=== PATIENT | male | born 1990 | race Caucasian/White ===

== ENCOUNTER 2018-09-19 17:52 | Inpatient (IN) ==
[2018-09-19] MEDS ORDERED: CLINDAMYCIN 600 MG/NS 600 MG/50 ML IVPB IV ONE (18:35)
[2018-09-19] MEDS ORDERED: ZOFRAN IV ONE (18:35)
[2018-09-19] MEDS ORDERED: MORPHINE IV ONE (18:35)
[2018-09-19] MEDS ORDERED: NS 1,000 ML IV ONE ×2 (18:35→21:11)
[2018-09-19] MEDS ORDERED: CLINDAMYCIN 600 MG/D5W 600 MG/50 ML IVPB IV ONE (18:45)
[2018-09-19 19:21] LABS: BASO# 0.07 X1000 (0.0-0.2); BASO% 0.4 % (0.0-0.8); EOS# 0.16 X1000 (0.0-0.7); EOS% 0.9 % (0.0-10.0); HEMATOCRIT 41.7 % (42.0-52.0); HEMOGLOBIN 14.6 g/dL (14.0-18.0); IMM GRAN# 0.16 X1000 (0.0-0.04); IMM GRAN% 0.9 % (0.0-0.5); LYMPH# 1.25 X1000 (1.2-3.4); MCH 29.3 PG (27-31); MCV 83.7 FL (81-99); MONO# 2.23 X1000 (0.11-0.59); MONO% 12.5 % (1.7-9.3); MPV 9.7 FL (7.4-10.4); NEUT# 13.93 X1000 (1.4-6.5); NEUT% 78.3 % (42.2-75.2); PLT 227 X1000 (130-400); RBC 4.98 XMIL (4.7-6.1); RDW 12.6 % (11.5-14.5)
--- NOTE | 2018-09-19 19:30 | Diag Imaging Result Doc PS360 ---
EXAM: HAND COMPLETE RIGHT - 09/19/2018 HISTORY: severe cellulitis TECHNIQUE: Right hand three views COMPARISON: 11/29/2015 FINDINGS: The patient apparently is unable to straighten the second through fifth fingers for optimal positioning. There is substantial soft tissue swelling. There are no bony erosive or destructive changes identified. There is no fracture or dislocation identified. There is no opaque foreign body identified. IMPRESSION: Substantial soft tissue swelling. No discrete bony abnormality. Electronically signed by Gopal Aguayo 09/19/2018 7:28 PM
[2018-09-19 20:29] LABS: AGAP 14; ALBUMIN 3.5 g/dL (3.5-5.0); ALKALINE PHOSPHATASE 106 U/L (32-122); BUN 7 mg/dL (8-22); CALCIUM 8.8 mg/dL (8.8-10.2); CHLORIDE 94 mmol/L (98-107); COSMO 266; CREATININE 0.6 mg/dL (0.7-1.2); ESTIMATED GFR > 60; GLUCOSE 100 mg/dL (70-104); GOT 24 U/L (10-34); GPT 22 U/L (10-44); POTASSIUM 3.2 mmol/L (3.5-5.1); SODIUM 134 mmol/L (136-145); TCO2 26 mmol/L (25-35); TOTAL PROTEIN 7.6 g/dL (6.3-8.3)
[2018-09-19] MEDS ORDERED: DILAUDID IV ONE ×2 (20:38→21:31)
[2018-09-19] MEDS ORDERED: VANCOMYCIN 1 GM/NS 1 GM/250 ML IVPB IV ONE (21:10)
[2018-09-19] MEDS ORDERED: ZOFRAN IV PRN (21:11)
[2018-09-19] MEDS ORDERED: VANCOMYCIN IV PER PHARMACY MISC SCH (21:15)
[2018-09-19] MEDS ORDERED: DILAUDID ONE (21:32)
[2018-09-19] MEDS: NS IV SCH (22:10)
[2018-09-19] MEDS: UNASYN IV SCH (22:10)
--- NOTE | 2018-09-19 23:05 | PROVIDER DOCUMENTATION ---
This chart was entered by Aleida Piña Scribe, acting as scribe for Madalyn Schaffer CRNP. HPI-Rash/Wound/ReCheck - General Chief Complaint: Insect Bite/Sting Stated Complaint: POSS SPIDER BITE RT HAND Time Seen by Provider: 09/19/18 18:18 Source: patient Allergies/Adverse Reactions: Allergies Allergy/AdvReac Type Severity Reaction Status Date / Time No Known Allergies Allergy Verified 09/19/18 19:04 Home Medications: Home Medication List Medication Instructions Recorded Confirmed Last Taken Type NK [No Home Medications] 09/19/18 09/19/18 Unknown History - History of Present Illness-Dermatology Nature of Presenting Problem: Pt sts that he was working under a house 4-5 days ago and felt a sting/bite on his right hand. Reports gradual swelling since then and affected hand and is now erythemic and severely swollen with purulent exudate. He denies fever or any other symptoms. Location: reports: hands (R hand) Quality: reports: painful, stinging Onset/Duration: reports: 1 week ago Timing: reports: still present Context/Associated Symptoms: reports: insect bite/sting, spider bite, abscess. denies: fever Identifiable cause?: No (possible spider/insect ) Exposure: reports: unknown cause Modifying Factors: improves with: topical steriods, other Locality of Occurance: Home Similar Symptoms Previously?: No Recently seen or treated by another doctor?: No Review of Systems - Adult - REVIEW OF SYSTEMS - ADULT Constitutional: reports: no symptoms reported. denies: chills, fever Eyes: reports: no symptoms reported Ears, Nose, Mouth & Throat: reports: no symptoms reported Cardiovascular: reports: no symptoms reported. denies: chest pain Respiratory: reports: no symptoms reported. denies: cough, shortness of breath Gastrointestinal: reports: no symptoms reported. denies: abdominal pain Genitourinary: reports: no symptoms reported Musculoskeletal: reports: see HPI, joint swelling, other (hand pain) Integumentary: reports: other (cellulitic right hand) Neurological: reports: no symptoms reported Psychiatric: reports: no symptoms reported Endocrine: reports: no symptoms reported Hematologic/Lymphatic: reports: no symptoms reported Allergic/Immunologic: reports: no symptoms reported All Other Systems: Reviewed and Negative Past History - Adult - PAST MEDICAL HISTORY-ADULT Review of Records: reports: Old Records Reviewed, Nursing Assessment Review, Medications Reviewed, Social history reviewed & non-contributory. Major Childhood Illnesses: reports: denies history Cardiovascular: reports: denies history Respiratory: reports: denies history Gastrointestinal: reports: denies history Obstetrical/Gynecological: reports: denies history Genitourinary: reports: denies history Musculoskeletal: reports: denies history Neurological: reports: denies history Psychiatric: reports: denies history Endocrine/Immune: reports: denies history Other Conditions: reports: denies history - PRIOR SURGERIES/PROCEDURES Surgical/Procedure History: reports: none - FAMILY HISTORY Family History: reviewed, not pertinent - SOCIAL HISTORY Smoking: cigarettes, less than 1 pack/day Provider spent 3-5 mins advising pt. on dangers of tobacco.: Discussed manners to quit use, and f/u contacts for add'l counseling. Substance Use: none/never Alcohol Use Frequency: never Living Situation: family Physical Exam-General - PHYSICAL EXAM-ADULT Initial Vital Signs Reviewed: Yes - CONSTITUTIONAL General Appearance: appears well, alert, mild distress. negative: lethargic, slow to respond - EYES Eyes: pink conjunctivae - HEAD, EARS, NOSE, MOUTH & THROAT HENMT: normocephalic/atraumatic, moist mucous membranes - NECK Neck: full range of motion, supple, normal inspection - RESPIRATORY Respiratory: chest non-tender, lungs clear, normal breath sounds, no pleuratic chest pain, no respiratory distress, no accessory muscle use - CARDIOVASCULAR Cardiovascular: normal peripheral pulses, regular rate, rhythm, no gallop, no murmur - GASTROINTESTINAL (ABDOMEN) Abdominal Exam: normal bowel sounds, non tender, soft - MUSCULOSKELETAL Back Exam: normal inspection Extremity: erythema, swelling (Severe edema noted to right hand. Pt able to wiggle all fingers but unable to bend fingers due to swelling. Sensation is intact. Area surrounding right thumb very fluctuant. Yellow exudate draining from an opening to the cellulitic area. Cellulitis does not extend into forearm but is noted to entire right hand.), tenderness, other (Pt has severe errythema and edema w/ yellow, oozing exudate to R hand dear thumb). negative: deformity , pulse deficit, slow capillary refill - SKIN Integumentary: normal color, normal turgor, warm/dry, swelling, tenderness - NEUROLOGIC Neurologic: grossly normal - PSYCHIATRIC Psych/Mental Status: normal mood/affect, normal thought content, normal thought process, oriented x 3 Progress - PLAN OF CARE/RESULTS Progress/Plan/Lab Results: Vital Signs - 8 hr 09/19/18 18:03 09/19/18 21:52 Temperature 98.1 F 98.8 F Pulse Rate 108 H 78 Respiratory Rate 18 18 Blood Pressure 140/91 134/88 O2 Sat by Pulse Oximetry 100 99 09/19/18 21:10 Gram Stain - Final Wound - Drainage Laboratory Results - last 24 hr 09/19/18 09/19/18 19:05 19:05 WBC 17.80 H RBC 4.98 Hgb 14.6 Hct 41.7 L MCV 83.7 MCH 29.3 MCHC 35.0 RDW Std Deviation 12.6 Plt Count 227 MPV 9.7 Immature Gran % (Auto) 0.9 H Neut % (Auto) 78.3 H Lymph % (Auto) 7.0 L Jones % (Auto) 12.5 H Eos % (Auto) 0.9 Baso % (Auto) 0.4 Immature Gran # (Auto) 0.16 H Neut # (Auto) 13.93 H Lymph # (Auto) 1.25 Jones # (Auto) 2.23 H Eos # (Auto) 0.16 Baso # (Auto) 0.07 Sodium 134 L Potassium 3.2 L Chloride 94 L Carbon Dioxide 26 Anion Gap 14 BUN 7 L Creatinine 0.6 L Estimated GFR/1.73 m2 > 60 BUN/Creatinine Ratio 12 Glucose 100 Calculated Osmolality 266 Calcium 8.8 Total Bilirubin 0.40 AST 24 ALT 22 Alkaline Phosphatase 106 Total Protein 7.6 Albumin 3.5 Globulin 4.0 Albumin/Globulin Ratio 1.0 Orders Category Date Time Status Admit - [facility] Routine AdmDCTranf 09/19/18 21:11 Active Activity - Up Ad Alena ORDERED Care 09/19/18 21:11 Active I&D [I and D Set up] DIRECTED Care 09/19/18 20:01 Active Misc. NRSG Communication Order DIRECTED Care 09/19/18 22:44 Active Resuscitation Status Routine Care 09/19/18 21:11 Ordered Vital Signs Order ROUTINE Care 09/19/18 21:11 Active Regular Diet Diet 09/19/18 21:13 Active HAND COMPLETE RIGHT [RAD] Stat Exams 09/19/18 18:59 Completed BLOOD CULTURE [BLDCUL] Stat Lab 09/19/18 19:05 Results CBC WITH DIFF [HEME] Stat Lab 09/19/18 19:05 Completed COMPREHENSIVE METABOLIC PANEL [CHEM] Stat Lab 09/19/18 19:05 Completed GRAM STAIN [DIREX] Stat Lab 09/19/18 21:10 Completed WOUND CULTURE INC GRAM STAIN [RM] Routine Lab 09/19/18 20:02 Received 0.9% Sodium Chloride Inj [Ns] 1,000 ml Med 09/19/18 18:35 Active IV 100 mls/hr 0.9% Sodium Chloride Inj [Ns] 1,000 ml Med 09/19/18 21:11 Active IV 100 mls/hr Acetaminophen [Tylenol] Med 09/19/18 21:11 Active 650 mg PO Q6H PRN PRN Ampicillin/Sulbactam [Unasyn] 3 gm Med 09/19/18 21:15 Active 0.9% Sodium Chloride Inj [Ns] 100 ml IV Q6H Clindamycin 600 mg/D5w Med 09/19/18 18:45 Discontinued 600 mg in 50 ml IV NOW Hydromorphone [Dilaudid] Med 09/19/18 21:32 Discontinued 1 mg .ROUTE .STK-MED ONE Hydromorphone [Dilaudid] Med 09/19/18 20:38 Discontinued 1 mg IV NOW ONE Hydromorphone [Dilaudid] Med 09/19/18 21:31 Discontinued 1 mg IV NOW ONE Morphine Med 09/19/18 18:35 Discontinued 4 mg IV NOW ONE Morphine Med 09/19/18 21:11 Active 4 mg IV Q4H PRN PRN Ondansetron [Zofran] Med 09/19/18 18:35 Discontinued 4 mg IV NOW ONE Ondansetron [Zofran] Med 09/19/18 21:11 Active 4 mg IV Q6H PRN PRN Pharmacy Order [Vancomycin IV Per Pharmacy] Med 09/19/18 21:15 Ordered 1 each MISC DIRECTED Vancomycin 1 gm/Ns Med 09/19/18 21:10 Discontinued 1 gm in 250 ml IV NOW Transfer/Admit Order [TRANSFER] Routine Transfer 09/19/18 21:09 Ordered Admitting [facility] paged regarding admission. Dr. Barr accepted admission- states to order Vancomycin and Unasyn. Pt aware and in agreement with admission. Pt did not tolerate I&D well. Was pre medicated with Dilaudid but still was very uncooperative. Large amount of exudate expressed from right hand after incision was made with 11 blade. Area cleaned well with saline and hibiclens prior to incision. Dr. Almeida examined hand after I&D and does not recommend packing at this time. Result Diagrams: 09/19/18 19:05 09/19/18 19:05 - XRAY 1 XRAY: Right XRAY Study: Hand ([facility] [address], [address], [place] [address] Department of Imaging Patient: EDGARD MCCRAY Date: #: [id number] : 1990ADM Status: REG ERAcct#: [id number] Age/Sex: 27/MRoom/Bed: Loc: P.ED Ordering Physician: Madalyn Schaffer Family Physician: None,PCP Reason for Procedure: severe cellulitis Signed * EXAM: HAND COMPLETE RIGHT - 09/19/2018 HISTORY: severe cellulitis TECHNIQUE: Right hand three views COMPARISON: 11/29/2015 FINDINGS: The patient apparently is unable to straighten the second through fifth fingers for optimal positioning. There is substantial soft tissue swelling. There are no bony erosive or destructive changes identified. There is no fracture or dislocation identified. There is no opaque foreign body identified. IMPRESSION : Substantial soft tissue swelling. No discrete bony abnormality. Electronically signed by Gopal Aguayo 09/19/2018 7:28 PM [id number] Interpreting Physician: Gopal Aguayo MD Dictated Date/Time: 09/19) Procedures - INCISION & DRAINAGE Site: right hand Prepped with: Hibiclens Anesthetic: 1%, Lidocaine/Xylocaine Volume of Anesthetic (ml's): 5 Blade Size: 11 Packing placed?: No Sterile Dressing Applied?: Yes Drainage: Large Amount Departure - Departure Date of Disposition Decision: 09/19/18 Time of Disposition Decision: 21:30 DIAGNOSIS: Cellulitis Qualifiers: Site of cellulitis: extremity Site of cellulitis of extremity: upper extremity Laterality: right Qualified Code(s): L03.113 - Cellulitis of right upper limb Disposition: ADMITTED INPATIENT 09 Certified Medical Emergency: Emergent Condition: Stable Referrals and Follow-Ups: None,PCP [Primary Care Provider] - - Critical Care Note This patient required my direct & personal management of CC.: No Attestation - Physician/ JULEE Attestation Patient care was provided by Advanced Practice Provider:: Yes Advanced Practice Provider:: Madalyn Schaffer Advanced Practice Provider documentation review:: The Mid-level provider documentation, treatment plan and medical decision making was reviewed by the physician who agrees with all treatment and medical decision making by the MLP. The physician spent face to face time with patient:: Yes (Dr. Almeida was at bedside for consult at 1999) Advanced Practice Provider documentation review:: Supervising physician onsite and consulted in the evaluation and care of this patient. The physician did have a face to face encounter with the patient. This chart was documented by the indicated scribe, (Aleida Piña Scribe) and accurately reflects the services I performed and decisions made by , Madalyn Schaffer CRNP, as attested by the provider's signature.
[2018-09-20] MEDS ORDERED: VANCOMYCIN 1 GM/NS 1 GM/250 ML IVPB IV ONE (01:00)
[2018-09-20] MEDS: TYLENOL PO PRN ×2 (01:18→15:40)
[2018-09-20] MEDS: MORPHINE IV PRN ×3 (01:18→17:48)
[2018-09-20] MEDS: NS IV SCH ×5 (03:44→23:43)
[2018-09-20] MEDS: UNASYN IV SCH ×5 (03:44→23:43)
[2018-09-20 06:16] LABS: BASO# 0.05 X1000 (0.0-0.2); BASO% 0.3 % (0.0-0.8); EOS# 0.25 X1000 (0.0-0.7); EOS% 1.3 % (0.0-10.0); HEMATOCRIT 38.9 % (42.0-52.0); HEMOGLOBIN 13.4 g/dL (14.0-18.0); LYMPH# 1.41 X1000 (1.2-3.4); LYMPH% 7.4 % (20.5-51.1); MCH 29.1 PG (27-31); MCHC 34.4 g/dL (33-37); MCV 84.4 FL (81-99); MONO# 2.77 X1000 (0.11-0.59); MONO% 14.5 % (1.7-9.3); MPV 9.4 FL (7.4-10.4); NEUT# 14.37 X1000 (1.4-6.5); NEUT% 75.5 % (42.2-75.2); PLT 226 X1000 (130-400); RBC 4.61 XMIL (4.7-6.1); RDW 12.7 % (11.5-14.5); WBC 19.05 X1000 (4.8-10.8)
[2018-09-20 06:43] LABS: AGAP 11; ALBUMIN 2.9 g/dL (3.5-5.0); ALKALINE PHOSPHATASE 80 U/L (32-122); BUN 5 mg/dL (8-22); CALCIUM 8.2 mg/dL (8.8-10.2); CHLORIDE 103 mmol/L (98-107); CK PROFILE 91 U/L (24-204); COSMO 276; CREATININE 0.6 mg/dL (0.7-1.2); ESTIMATED GFR > 60; GLUCOSE 114 mg/dL (70-104); GOT 19 U/L (10-34); GPT 20 U/L (10-44); SODIUM 139 mmol/L (136-145); TCO2 25 mmol/L (25-35); TOTAL PROTEIN 5.6 g/dL (6.3-8.3)
[2018-09-20 07:05] LABS: INR 1.12
[2018-09-20 07:06] LABS: PTT 36.7 Seconds (22.3-41.8)
[2018-09-20] MEDS: NS 1,000 ML IV SCH ×2 (09:31→23:59)
--- NOTE | 2018-09-20 11:27 | HISTORY AND PHYSICAL ---
PRIMARY CARE PHYSICIAN: None. CHIEF COMPLAINT: Right hand swelling and painful after working under a house and receiving a sting/bite 4 to 5 days prior. HISTORY OF PRESENTING ILLNESS: This is a 27-year-old male, who presents to [facility] ER with complaints of a pain to his right hand. States that approximately 4 to 5 days prior, he felt a sting/bite on his right hand and that it had gradually gotten worse. When he presented, he had erythema, edema, warmth to touch, some purulent exudate also noted. His white blood cell count was 17.80. His potassium was 3.2. Plasma lactate was normal at 1.0. We did do an x-ray of his right hand that showed substantial soft tissue swelling, but no discrete bony abnormality. In the emergency room, it is noted that the ER physician attempted an I and D to the right hand, did not tolerate well, was uncooperative, but documented that a large amount of exudate was expressed from the right hand after incision was made with an 11 blade. The area was cleaned with saline and Hibiclens prior to the incision, and packing was not done at this time. So, he was admitted for further evaluation and treatment. PAST MEDICAL HISTORY: None. PAST SURGICAL HISTORY: None. FAMILY HISTORY: Reviewed and noncontributory. SOCIAL HISTORY: Currently lives with family. Smokes 2 to 3 cigarettes a day and has done so for approximately 10 years. Denies any alcohol or illicit drug use. ALLERGIES: He has no known drug allergies. HOME MEDICATIONS: He does not take any medications on a routine basis at this time. LABORATORY DATA: Showed a white blood cell count of 17.80, hemoglobin 14.6, hematocrit 41.7, platelets 227. Repeat this morning showed a white blood cell count of 19.05. PT and INR of 15 and 1.12. Sodium 134, potassium 3.2, chloride 94, CO2 26, BUN of 7, creatinine 0.6, glucose 100. Cardiac enzyme was negative. Plasma lactate of 1.0. Repeat this morning did show that potassium was back to normal at 4. Hand x-ray of his right hand showed substantial soft tissue swelling. No discrete bony abnormality noted. REVIEW OF SYSTEMS: He denied any fever, chills, blurred vision, dizziness, chest pain, coughing, shortness of breath, abdominal pain, constipation, diarrhea, burning or hurting with urination. He was positive for erythema, edema, warmth to touch, tenderness to touch to his right hand that extended down almost to his elbow. PHYSICAL EXAMINATION: VITAL SIGNS: On arrival, he had a temperature of 98.1 degrees, pulse 108, respirations 18, blood pressure 140/91, satting 100% on room air. GENERAL: This is a 27-year-old male, who is lying in the bed and answers questions appropriately. HENT: Normocephalic, atraumatic. Normal ENT inspection. Oropharynx and nares are clear. EYES: Pupils are equal, round, reactive to light and accommodation. Extraocular movements are intact. NECK: Normal inspection, normal range of motion. LUNGS: Clear to auscultation bilaterally with equal lung expansion and chest wall movement. HEART: With regular rate and rhythm. No murmurs, rubs, or gallops. ABDOMEN: Soft, nontender, nondistended. Bowel sounds are present x4 quadrants. EXTREMITY: Patient is noted to have erythema, severe edema, warmth to touch with some purulent drainage noted from his right hand. The cellulitis extended into the forearm and was marked with a skin marker. He is unable to bend his fingers due to the edema. Again, the area was attempted to have an I and D in the emergency room. The patient did not tolerate well. No packing was placed at this time. On his skin marking down to the forearm, the erythema has improved and minimal in that area. Begins again having the erythema, edema, and warmth to touch starting around the wrist area extending into the right hand. NEUROLOGICAL: The cranial nerves 2-12 appear grossly intact. ASSESSMENT: 1. Right hand cellulitis secondary to possible spider bite. 2. Leukocytosis. 3. Hypokalemia, now resolved. 4. Tobacco abuse. PLAN: He was admitted to the medical unit at [place], placed on a regular diet. We are going to consult Orthopedics. We will consult Wound Care. Blood cultures x2 are pending. Wound culture pending. We will obtain a urinalysis. He is on morphine 4 mg IV q. 4 hours p.r.n., normal saline at 100 mL an hour, vancomycin per pharmacy protocol, Unasyn 3 g IV q. 6 hours. We will recheck a CBC and BMP in the a.m. Further orders after being seen by attending and after being seen by Orthopedics. Dictated by GISSELLE Martinez for Lei Barr MD cc: GISSELLE Martinez MD
--- NOTE | 2018-09-20 11:29 | CONSULTATION ---
DATE OF CONSULTATION: 09/20/2018 CHIEF COMPLAINT: Right hand pain, swelling, and purulent exudate. HISTORY OF PRESENT ILLNESS: Mr. Bell is a 27-year-old male who apparently about 5 days ago was working underneath his house replacing some pipes and he felt a sting in his right hand. He states the day following, his hand started to swell. It worsened and he started to also have purulent exudate from his right hand. He presented to the emergency department. He has been admitted for further evaluation and treatment. While he was in the emergency department, an I and D was performed. Cultures and Gram stain were taken. The Gram stain revealed gram positive cocci. The patient also states last night they lanced it and did another I and D. He states since last night his hand has improved and the pain has improved as well. The wound has continued to drain. We were asked for further evaluation and treatment regarding his right hand. PAST MEDICAL HISTORY, PAST SURGICAL HISTORY, ALLERGIES, MEDICATIONS, HISTORY AND PHYSICAL, REVIEW OF SYSTEMS: Positive for right hand pain and drainage, all was negative. PHYSICAL: General: This is a well-developed, well-nourished male, alert, oriented and cooperative with the examination. He is in no acute distress. Vital Signs: Temperature is 98.7, pulse is 99. Respiratory rate is 18, blood pressure 119/79. Oxygen saturation 100% on room air. HEENT: Head is normocephalic. Atraumatic. Neck: Supple. Respiratory: His breathing is nonlabored. Abdomen: Soft. Neurologic: Sensation of his right hand is intact. MUSCULOSKELETAL: Right hand with pain and loss of range of motion of his right hand. There is swelling throughout the right hand. He is able to move all of his fingers but is limited due to swelling. He does have capillary refill of all fingers. Skin: There is a draining wound at the thenar eminence of his right hand. The drainage is purulent and bloody. There is erythema throughout the hand as well. IMAGING: X-rays of his right hand reveals soft tissue swelling with no discrete bony abnormality. LABORATORIES: His white blood cell count today is 19.05. ASSESSMENT: Right hand wound and cellulitis. PLAN: I discussed with the patient treatment options and that he would benefit from an irrigation and debridement in the operating room. The patient states that he has improved drastically since irrigation and debridement last night at bedside. He wishes to wait and see how he does. For now we will continue his IV antibiotics and continue to monitor him and see how he does. If he worsens or does not improve, we will take to the operating room and proceed with a right hand irrigation and debridement. Dictated by JAN Isidro for Ten Sanchez MD cc: JAN Isidro MD Alexis R. Penot, MD [facility]
[2018-09-20 11:48] LABS: BILIRUBIN URINE NEGATIVE (NEGATIVE); BLOOD URINE NEGATIVE (NEGATIVE); CLARITY CLEAR (CLEAR); COLOR YELLOW; GLUCOSE URINE NEGATIVE (NEGATIVE); KETONE URINE NEGATIVE (NEGATIVE); LEUKOCYTES URINE NEGATIVE (NEGATIVE); NITRITE URINE NEGATIVE (NEGATIVE); PROTEIN URINE NEGATIVE (NEGATIVE); UROBILINOGEN URINE 1 mg/dL
[2018-09-20 11:51] LABS: URINE EPITHELIAL CELLS <10 /HPF (<10); URINE SOURCE CLEAN CATCH
[2018-09-20] MEDS: VANCOMYCIN 1,500 MG in NS 250 ML IV SCH (13:38)
[2018-09-20] MEDS ORDERED: SODIUM CHLORIDE 0.9% INJ SCH (19:45)
[2018-09-20] MEDS ORDERED: PROTONIX IV SCH (19:45)
--- NOTE | 2018-09-20 20:49 | HISTORY AND PHYSICAL ---
ADDENDUM: The patient came in with a hand wound which looks like just a large subcutaneous abscess with associated cellulitis. The patient initially was reluctant to pursue any treatment. He got his hand bit possibly by a spider and has had progressive swelling and pain. No history of medical issues, diabetes, staph infections, now he just has a grotesquely enlarged hand with pus extending along the thenar eminence on the prone and superior side, despite incision and drainage he still has a lot of subcutaneous purulence. His white count has gone up despite IV antibiotics. I do not think he will be controlled without debridement and I and D, I have discussed this with the patient. He is in accordance to get I and D so we will make arrangements to transfer him to [facility] for full orthopedic evaluation for I and D. I discussed this with PA for Dr. Sanchez. She was really recommending that he get I and D but the patient was refusing at that time. I do think this is likely MRSA. He is on vancomycin and Unasyn until we get some more specific details from his wound culture but he is actively draining pus from that wound. This is a [id number] encounter note with Zhane Camara. cc: Lei Barr MD
[2018-09-20] MEDS: DILAUDID IV PRN ×2 (20:58→23:59)
[2018-09-21] MEDS: VANCOMYCIN 1,500 MG in NS 250 ML IV SCH ×2 (03:03→14:16)
[2018-09-21] MEDS: UNASYN IV SCH (06:21)
[2018-09-21] MEDS: DILAUDID IV PRN ×4 (06:21→22:14)
[2018-09-21] MEDS: NS IV SCH (06:21)
[2018-09-21 07:57] LABS: BASO# 0.06 X1000 (0.0-0.2); BASO% 0.5 % (0.0-0.8); EOS# 0.29 X1000 (0.0-0.7); EOS% 2.6 % (0.0-10.0); HEMATOCRIT 35.6 % (42.0-52.0); HEMOGLOBIN 11.8 g/dL (14.0-18.0); IMM GRAN# 0.33 X1000 (0.0-0.04); LYMPH# 1.57 X1000 (1.2-3.4); LYMPH% 14.1 % (20.5-51.1); MCH 28.8 PG (27-31); MCHC 33.1 g/dL (33-37); MCV 86.8 FL (81-99); MONO# 1.43 X1000 (0.11-0.59); MONO% 12.9 % (1.7-9.3); MPV 9.5 FL (7.4-10.4); NEUT# 7.42 X1000 (1.4-6.5); NEUT% 66.9 % (42.2-75.2); PLT 235 X1000 (130-400)
[2018-09-21 08:08] LABS: AGAP 10; BUN 8 mg/dL (8-22); CALCIUM 8.1 mg/dL (8.8-10.2); CHLORIDE 104 mmol/L (98-107); COSMO 274; CREATININE 0.6 mg/dL (0.7-1.2); ESTIMATED GFR > 60; GLUCOSE 107 mg/dL (70-104); POTASSIUM 3.9 mmol/L (3.5-5.1); SODIUM 138 mmol/L (136-145); TCO2 24 mmol/L (25-35)
[2018-09-21 09:15] LABS: ANISOCYTOSIS 1+; ATYPICAL LYMPH 1 %; BANDS 1 % (0-1); EOS 3 % (1-10); LYMPHS 12 % (21-51); MONO 10 % (1-9); SEGS 73 % (42-75)
[2018-09-21] MEDS ORDERED: SODIUM CHLORIDE 0.9% INJ SCH (11:00)
[2018-09-21] MEDS ORDERED: TYLENOL PO PRN (11:00)
[2018-09-21] MEDS ORDERED: ZOFRAN IV PRN (11:01)
[2018-09-21] MEDS: PROTONIX IV SCH (11:34)
[2018-09-21] MEDS: NS 1,000 ML IV SCH ×2 (11:35→22:18)
[2018-09-21] MEDS ORDERED: UNASYN IV SCH (12:00)
[2018-09-21] MEDS ORDERED: NS IV SCH (12:00)
--- NOTE | 2018-09-21 12:05 | PROGRESS NOTE ---
DATE: 09/21/2018 SUBJECTIVE: Mr. Bell is a 27-year-old male with a right hand wound. He recently was transferred over to [facility] for us to proceed with a right hand irrigation and debridement. He denies any changes in his symptoms since we saw him yesterday. OBJECTIVE: He is well developed, well nourished male. He is alert, oriented, and cooperative with the examination. He is in no acute distress. His vital signs are stable. He is afebrile. His right hand continues to have a wound at the thenar eminence that is draining. His erythema throughout his hand has improved some. There still continues to be edema throughout hand. LABS: His white blood cell count is 11.1. ASSESSMENT: Right hand wound. PLAN: Right hand irrigation debridement. We are going to proceed with a right hand irrigation and debridement later this afternoon. Dr. Sanchez discussed with the patient risks and benefits of surgery, including risk of anesthesia, , bleeding, infection, damage to tendons, nerves, ligaments and other imponderables were discussed with the patient. The patient wishes to proceed with operative management at this time. Dictated by JAN Isidro for Ten Sanchez MD cc: JAN Isidro MD Alexis R. Penot, MD
--- NOTE | 2018-09-21 13:05 | PROGRESS NOTE ---
DATE: 09/21/2018 INTERVAL HISTORY: Patient pain relatively well controlled on antibiotics with vancomycin and Augmentin. Currently NPO for I D of the right hand later today. The right hand remains markedly swollen with erythema and some necrosis. One fever overnight to 101. No chills. No nausea, vomiting, diarrhea. No other new complaints. No other acute events overnight. LABS: WBC 11.1, hemoglobin 11.8, hematocrit 35.6, platelets 235. Basic metabolic panel unremarkable. Urinalysis unremarkable. VITALS: Temp 97.8 degrees, pulse 69, blood pressure 133/75, O2 saturation 100%. PHYSICAL EXAMINATION: General: No acute distress. Vitals: As above. HEENT: Normocephalic, atraumatic, moist mucous membranes. No JVD or cervical adenopathy. Cardiovascular: Regular rate and rhythm. No murmurs, rubs, or gallops. Pulmonary: Clear to auscultation bilaterally. No wheezing, rales, or rhonchi. Abdomen: Soft, nontender, nondistended. Positive bowel sounds. Extremities: Peripheral pulses intact. Right hand with marked diffuse erythema and edema. Some necrosis on the palmar side. The. Neurologic: Cranial nerves 2-12 grossly intact. No focal motor sensory deficits. Psychiatric: Normal mood and affect. Awake, alert, oriented x3. Skin: Erythema and edema of the right hand as above. No other acute lesions or rashes identified. ASSESSMENT AND PLAN: 1. Right hand erythema and likely abscess. Patient on antibiotics with vancomycin and Augmentin. Evaluation by ID pending. Patient currently NPO for incision and debridement later today by Dr. Sanchez. 2. Hypokalemia, improved status post repletion. Monitor labs. 3. Hyponatremia, resolved with IV fluids. Continue to monitor. 4. Leukocytosis, improving with treatment of infection as above. 5. Tobacco abuse. The patient counseled on cessation. [facility]
[2018-09-21] MEDS ORDERED: VERSED ONE (17:14)
[2018-09-21] MEDS ORDERED: XYLOCAINE-MPF 2% ONE (17:20)
[2018-09-21] MEDS ORDERED: DIPRIVAN 1% ONE (17:21)
[2018-09-21] MEDS ORDERED: DECADRON ONE (17:56)
[2018-09-21] MEDS ORDERED: ZOFRAN ONE (17:56)
[2018-09-21] MEDS ORDERED: FENTANYL ONE (18:01)
[2018-09-21] MEDS: DILAUDID ONE ×4 (18:45→19:04)
[2018-09-21] MEDS: PHENERGAN ONE ×2 (18:46→19:10)
[2018-09-21] MEDS ORDERED: OXY IR ONE (19:40)
[2018-09-21] MEDS: MORPHINE IV PRN (23:18)
[2018-09-22] MEDS: MORPHINE IV PRN (00:52)
[2018-09-22] MEDS: VANCOMYCIN 1,500 MG in NS 250 ML IV SCH (03:24)
[2018-09-22] MEDS: DILAUDID IV PRN ×6 (03:27→21:20)
--- NOTE | 2018-09-22 05:28 | INFECTIOUS DISEASE CONSULT REP ---
DATE: 09/21/2018 CONCLUSION: Patient has an infected right hand. There appears to be not only cellulitis but an abscess present. RECOMMENDATIONS: I agree with treating the patient with vancomycin. I have discontinued Unasyn and I certainly agree with having the patient go to surgery today so that any abscess can be drained. DISCUSSION: The patient said approximately a week ago, he was fixing some pipes for a neighbor and he felt a sudden pain in his hand. Following that, his hand became erythematous and swollen. He has been admitted to the hospital. His culture taken from his hand is growing presumptive methicillin-resistant Staphylococcus aureus. The patient's other laboratory studies show a CBC with a white count of 11,100, hemoglobin 11.8, and platelet count 235,000. The patient's creatinine is 0.6. GFR is greater than 60. The patient's liver function studies are normal. A CK was 91. The patient's urinalysis was negative for white cells and bacteria. PAST MEDICAL HISTORY/REVIEW OF SYSTEMS: Eyes and Ears: He denies difficulty hearing or seeing. Respiratory: No cough or shortness of breath. Cardiac: No chest pain or palpitations. GI: No nausea, vomiting, or diarrhea. Genitourinary: No dysuria or flank pain. Bones, Joints, and Muscles: See present illness. Endocrine: The patient does not have diabetes or thyroid problems. PREVIOUS HOSPITALIZATIONS AND OPERATIONS: None. MEDICAL DISEASES: Negative for diabetes mellitus and hypertension. INFECTIOUS DISEASE HISTORY: Negative for pneumonia and UTI. FAMILY HISTORY: Positive for myocardial infarction and cancer. SOCIAL HISTORY: [place] is [place]. He lives with his mother. He is unemployed. He smokes cigarettes and occasionally smokes marijuana. He has dogs for pets. ALLERGIES: His chart lists no known drug allergies. PHYSICAL EXAMINATION: Vital Signs: Temperature is 97.8 degrees, pulse 69, respirations are is 20, blood pressure is 133/75. Patient is 5 feet 9 inches tall, weighs 151 pounds. General: This is a healthy-appearing, young male. He is in no acute distress. Head, Eyes, Ears, Nose, and Throat: He can hear my spoken words and see near objects. He does not have any white patches on his tongue. Neck: No stiffness. Lungs: Clear to auscultation. Cardiovascular: Heart rate is regular. Abdomen: Soft and nontender. Neurologic: The patient is awake. The patient is alert. He can move his extremities. There is no tremor. Bones, Joints, and Muscles: The right hand is erythematous, swollen, and has some loss of superficial skin. The hand is tender also. Integument: No rash noted. Thank you for the consult. cc: Glenn Bell MD
--- NOTE | 2018-09-22 07:34 | OPERATIVE NOTE ---
PROCEDURE DATE: 09/21/2018 PREOPERATIVE DIAGNOSIS: Right hand thenar abscess. POSTOPERATIVE DIAGNOSIS: Right hand thenar abscess. PROCEDURE: Incision and drainage of right hand thenar abscess. ANESTHESIA: General. SURGEON: Ten Sanchez MD. BRAKE MACHINE OPERATOR: Vivi August PA-C. COMPLICATION: None. BLOOD LOSS: Minimal. TOURNIQUET TIME: Approximately 40 minutes. DESCRIPTION OF PROCEDURE: The patient was brought to the operative suite and placed in the supine position. After successful administration of general anesthesia, a well-padded tourniquet was placed on right proximal arm. The right upper extremity was prepped and draped in the usual fashion. The tourniquet was insufflated 250 torr. The skin was removed overlying the thenar eminence and the thenar webspace. There were multiple punctate drainage holes. These were excised and incisions were extended distally, proximally, and ulnarly. All necrotic tissue was excised. The wound tracked all the way to the thenar webspace. This was resected of all necrotic tissue and then copiously irrigated with normal saline containing irrigant and Vashe irrigation. A [place] drain was placed. Cultures were obtained prior to irrigation. The skin was closed with interrupted nylon sutures, leaving the drain coming out of the inferior aspect of the wound. A sterile dressing was applied. The patient tolerated the procedure well without complications. At the end of procedure all counts were correct. The patient was transferred to the recovery room in stable condition. cc: Ten Sanchez MD [facility]
--- NOTE | 2018-09-22 07:57 | PROGRESS NOTE ---
DATE: 09/21/2018 SUBJECTIVE: Juan R Bell is a 27-year-old male, who is postoperative day 1 from an incision and drainage of his right hand abscess. He states it is feeling better and has no complaints. OBJECTIVE: General: He is a well-developed, well-nourished male. He is alert, oriented, and cooperative to exam. Extremities: His dressing is clean, dry, and intact. His cultures have come back with gram-positive cocci from a couple days ago, but no sensitivity. He is going stay on the m vancomycin. His hand is neurovascularly intact. ASSESSMENT: Stable right hand after incision and drainage. PLAN: We will plan on change his dressing tomorrow and removing his drain at that time. He will need to stay until we get definitive sensitivities and until his hand is showing progress of healing. cc: Ten Sanchez MD
[2018-09-22] MEDS: PROTONIX IV SCH (11:10)
[2018-09-22] MEDS: NS 1,000 ML IV SCH ×3 (12:27→23:56)
[2018-09-22] MEDS: VANCOMYCIN 2,000 MG in NS 500 ML IV SCH (16:04)
[2018-09-23] MEDS: OXY IR PO PRN ×3 (00:02→10:23)
--- NOTE | 2018-09-23 04:33 | PROGRESS NOTE ---
DATE: 09/22/2018 SUBJECTIVE: Patient feels better after I D. He seems to be doing better overall. OBJECTIVE: Blood pressure 161/87, heart rate of 92, respiratory rate 18, temperature 97.7 degrees and 100% on room air.Cardiovascular: Regular rate and rhythm. Pulmonary: Bilateral breath sounds. Clear to auscultation. GI: Soft, nontender, and nondistended. Bowel sounds are positive. Extremities: His hand was bandaged. No white count today. PROBLEM LIST: 1. Significant hand cellulitis with MRSA. He is on vancomycin. At this point, I do not think he needs any other antibiotic. I do not think Augmentin is adding anything. We can discharge him potentially when stable and on doxycycline or Bactrim, but I will defer to Orthopedics when they feel comfortable discharging him, and they feel the wound is improved. 2. Hypokalemia is stable. We will continue to follow. DISPOSITION: Home in the next 1 to 2 days pending his clinical status. cc: Lei Barr MD
[2018-09-23] MEDS: DILAUDID IV PRN ×3 (05:11→12:18)
[2018-09-23] MEDS: VANCOMYCIN 2,000 MG in NS 500 ML IV SCH (05:15)
--- NOTE | 2018-09-23 05:24 | INFECTIOUS DISEASE PROGRESS NO ---
DATE: 09/22/2018 PRESENT ILLNESS: The patient is status post drainage of a right hand methicillin-resistant Staph aureus abscess. MEDICATIONS: The patient is receiving vancomycin. PHYSICAL EXAMINATION: Vital Signs: Temperature is 97.7 degrees, pulse 92, respirations 18, blood pressure 161/87. General: This is a healthy-appearing young male. He is in no acute distress. Head/eyes/ears/nose/throat: He can hear my spoken words and see near objects. No drainage noted from the nose or ears. Neck: No stiffness. Lungs: Clear to auscultation. Cardiovascular: Regular heart rate. Abdomen: Soft and nontender. Extremities: The patient's right hand has a large dressing around it, the patient is able to move all fingers of the right hand to a greater extent than he did in the past 1-2 days. On the part of the fingers that are visible there is no erythema. Neurologic: The patient is awake. He can move his extremities. There is no tremor. He is able to walk without difficulty. LABS AND X-RAY: There is no new labs or x-rays for today. ASSESSMENT AND PLAN: The patient has a methicillin-resistant Staphylococcus aureus infected hand and he has had drainage of the abscess. He is on intravenous vancomycin. I think if his wounds look good and it is okay with Dr. Sanchez, we could send the patient home on a per oral antibiotic such as Septra. COMORBIDITIES: He really does not have any comorbidity. He told me that he did not inject himself with a needle into his hand. cc: Glenn Bell MD
[2018-09-23] MEDS: NS 1,000 ML IV SCH (06:46)
[2018-09-23 07:33] LABS: BASO# 0.14 X1000 (0.0-0.2); BASO% 0.9 % (0.0-0.8); EOS# 0.34 X1000 (0.0-0.7); EOS% 2.3 % (0.0-10.0); HEMATOCRIT 40.5 % (42.0-52.0); HEMOGLOBIN 13.3 g/dL (14.0-18.0); IMM GRAN# 0.81 X1000 (0.0-0.04); IMM GRAN% 5.4 % (0.0-0.5); LYMPH# 2.18 X1000 (1.2-3.4); LYMPH% 14.4 % (20.5-51.1); MCH 28.5 PG (27-31); MCHC 32.8 g/dL (33-37); MCV 86.9 FL (81-99); MONO% 9.9 % (1.7-9.3); MPV 9.3 FL (7.4-10.4); NEUT# 10.14 X1000 (1.4-6.5); NEUT% 67.1 % (42.2-75.2); PLT 311 X1000 (130-400); RBC 4.66 XMIL (4.7-6.1); RDW 12.9 % (11.5-14.5); WBC 15.11 X1000 (4.8-10.8)
[2018-09-23 08:30] LABS: BANDS 4 % (0-1); EOS 2 % (1-10); LYMPHS 20 % (21-51); MONO 6 % (1-9); SEGS 66 % (42-75)
[2018-09-23] MEDS ORDERED: CLINDAMYCIN 600 MG/D5W 600 MG/50 ML IVPB IV SCH (10:00)
--- NOTE | 2018-09-23 11:57 | INFECTIOUS DISEASE PROGRESS NO ---
DATE: 09/23/2018 PRESENT ILLNESS: Mr. Bell has a methicillin-resistant Staph aureus infection of his right hand and is status post incision and drainage of the right hand abscess. MEDICATIONS: He is on day 4 of IV vancomycin per pharmacy dosing. PHYSICAL EXAMINATION: Vital Signs: Temperature is 98.2, pulse rate 78, respiratory rate 18, blood pressure 144/75. O2 saturation 100% on room air. General: This is an acutely ill-appearing young man. He is sitting up in bed in no acute distress. HEENT:: HEENT: He is atraumatic, normocephalic. Oral mucous membranes are pink and moist. Conjunctivae are pink. Neck is supple. Trachea is midline. Cardiovascular: Heart rate is regular. Radial and pedal pulses are +2 bilaterally. Integumentary: Skin is warm and dry. There is a large bulky dressing in place to his right hand. Finger tips are visible, pink and warm. There is some erythema noted to the left antecubital area where a previous IV site has been and may be a possible phlebitis. Respiratory: Lung sounds have mild respiratory wheeze bilaterally. Abdomen is soft, round, nontender. Bowel sounds are active. Neurologic: He is awake, alert, and oriented. Moves all extremities without difficulty except for the right hand which is having significant amount of pain. He is currently asking the nurse for pain medication. LABORATORY AND X-RAY: Today, his white count is 15.11, hemoglobin 13.3, platelet count 311,000. No BMP today. His right hand has grown two separate cultures showing methicillin -resistant Staph aureus. Blood cultures have been negative. No imaging reports today. ASSESSMENT AND PLAN: Mr. Bell has a methicillin-resistant Staph aureus infection to his right hand. He has undergone incision and drainage and continues on IV vancomycin. As long as he is in the hospital, we will continue the vancomycin. When he is ready to be discharged home, there is a prescription on the front of the chart for Bactrim DS one every 12 hours for 15 days. We will also see the patient back in our office in 2 weeks to reevaluate his wound. These plans have been discussed with and recommended by Dr. Bell. COMORBIDITIES: Cigarette and marijuana smoking. Dictated by GISSELLE Rodriguez for Glenn Bell MD This chart was documented by, GISSELLE Rodriguez and accurately reflects the services performed, treatment plan and medical decisions as attested by the providers signature Glenn Bell MD. cc: Glenn Bell MD [facility]
[2018-09-23] MEDS: PROTONIX IV SCH (12:13)
[2018-09-23 13:40] VITALS: BP 125/103
[2018-09-23] MEDS ORDERED: SEPTRA DS PO ONE (13:45)
--- NOTE | 2018-09-23 13:49 | PROGRESS NOTE ---
DATE: 09/23/2017 SUBJECTIVE: The patient is a 27-year-old male who is postoperative day 2 from I and D of his right hand. He has no complaints. OBJECTIVE: He is a well-developed, well-nourished male. He is alert, oriented, and cooperative on exam. Exam of his hand reveals the wound is healing nicely. There is no sign of any julius drainage or infection. The drain has been removed. The wound is clean. ASSESSMENT: Stable right hand wound. PLAN: He can be discharged home when cleared medically. We really would prefer for him to stay one more day to get another day of IV antibiotics, but he states he needs to go home due to a in the family, and I am okay with this. He will need to go home on Bactrim, and I want to see him back in the office on Wednesday. He is to change his dressing at least once or twice a day. He can wash it gently with soap and water. cc: MD Pelon Bledsoe Unknown
--- NOTE | 2018-09-25 09:41 | DISCHARGE SUMMARY ---
ADMISSION DATE: 09/19/2018 DISCHARGE DATE: 09/23/2018 SUBJECTIVE: Patient has no focal complaints. ADMISSION DIAGNOSIS: MRSA cellulitis of the hand. DISCHARGE DIAGNOSIS: MRSA cellulitis of the hand. PROCEDURES: I D. CONSULTATIONS: 1. Dr. Sanchez. 2. Ray Cerda, Infectious Diseases. HISTORY: A 27-year-old male who developed pain and swelling in his right hand, mostly in the thenar eminence. He had a bite possibly from a spider or brown recluse, and had increasing pain and swelling. It does sound like he tried to self or do incision himself, but his hand steadily got worse. When he came in, he had a large area of erythema and subcutaneous purulence pretty much encompassing his thenar eminence along the anterior and posterior side. He was admitted and placed on antibiotics. Wound culture was obtained which did end up growing out MRSA. Blood culture was negative. I examined him the night of the . Orthopedics Service evaluated him on the morning of the , and recommended I D, but he felt he was clinically improved, and he did not need that. His white count went from 17 to 19 and that was with antibiotics. I explained to the patient we really had no other option than I and D, and we transferred the patient on the for evaluation for treatment. ID was consulted by Dr. Winchester. Orthopedics had already been consulted. He did grow out MRSA which was sensitive to gent, tetracycline, Bactrim and vancomycin. He was left on vancomycin here. He clinically improved. On the , Dr. Sanchez felt stable for discharge. Actually, Dr. Sanchez wanted him to stay one more day, but he wanted to go home. We are going to discharge him on Bactrim. He did have a bump in his white count, but it is improved from admission. DISCHARGE CONDITION: Stable. DISCHARGE MEDICATIONS: He was discharged on [place] 7.5 q.6 p.r.n. pain dispensed 25 and Bactrim Double Strength 1 p.o. q.12 for 15 days. FOLLOWUP: He will follow up with Dr. Bell and Dr. Sanchez next week. TIME SPENT: 32 minute discharge. cc: Lei Barr MD
== END 2018-09-23 15:13 | disposition home or self-care (01) | DRG 906 ==
LOC: P.ED 17:52 → P.MEDSURG 23:29 → SUATTDRO 23:29 → 4N 09-20 00:41 → P.MEDSURG 09-20 00:42 → UNDODISIN 09-21 10:17 → 3N 09-21 10:51
PROVIDERS: ATTEND Internal Medicine
CPT/HCPCS: 73130; 80048; 80053; 80202; 81001; 82550; 83605; 84484; 85025; 85610; 85730; 87040; 87070; 87075; 87077; 87186; 87205; 96361; 96365; 96367; 96375; 96376; 99285; A9270; C9113; J0295; J1100; J1170; J2250; J2270; J2405; J2550; J3010; J3370; J7030; J7040; J7050; S0077; S0164